=== PATIENT | female | born 1965 | race Caucasian/White ===

== ENCOUNTER 2020-10-05 19:23 | Emergency (ER) | payer OTHER ==
[~2020-10-05] VITALS: Ht 160 cm; Wt 104.3 kg
[~2020-10-05 19:23] MED LIST: BENTYL20 MG PO; CYCL10 PO; ESTR2 PO; ESTRADIOL1 MG PO; HYDCHL12.5 PO; LEVSOD25 PO; LOSA25 PO; LOSARTAN POTAS100 MG PO; NP THYROID90 MG PO; Norco 5-325 Ta1 EACH PO; SERT100 PO; SERT25 PO
== END 2020-10-05 23:00 | disposition left against medical advice (07) ==
LOC: ER 19:23
DX: Z53.21 Procedure and treatment not carried out due to patient leaving prior to being seen by health care provider (principal)
CPT/HCPCS: 99282

== ENCOUNTER 2023-12-11 11:46 | Emergency (ER) | payer OTHER ==
[~2023-12-11] VITALS: Ht 162.6 cm; Wt 112.0 kg
[2023-12-11 12:39] LABS: BASOPHILS ABSOLUTE AUTO 0.11 K/mm3 (0.00-0.23); BASOPHILS PERCENT AUTO 1 % (0-2); EOSINOPHILS PERCENT AUTO 1 % (0-6); Hematocrit 41.9 % (33.0-51.0); Hemoglobin 13.9 g/dL (11.5-16.0); IMMATURE GRAN ABSOLUTE AUTO 0.03 K/mm3 (0.00-0.10); IMMATURE GRAN PERCENT AUTO 0 % (0-1); LYMPHOCYTES ABSOLUTE AUTO 2.49 K/mm3 (0.84-5.20); LYMPHOCYTES PERCENT AUTO 25 % (21-46); MONOCYTES ABSOLUTE AUTO 0.65 K/mm3 (0.16-1.47); MONOCYTES PERCENT AUTO 7 % (4-13); Mean Corpuscular HGB 29.3 pg (26.0-34.0); Mean Corpuscular HGB Conc 33.2 g/dL (31.5-36.5); Mean Corpuscular Volume 88 fL (80-100); NEUTROPHILS ABSOLUTE AUTO 6.42 K/mm3 (1.96-9.15); NEUTROPHILS PERCENT AUTO 66 % (41-73); Platelet Count 374 K/mm3 (150-400); RDW Coefficient Variation 14.6 % (11.7-14.2); RDW Standard Deviation 47.3 fL (35.1-46.3); Red Blood Cell Count 4.74 M/mm3 (3.80-5.20)
[2023-12-11 13:27] LABS: Albumin, Blood 3.4 g/dL (3.4-5.0); Albumin/Globulin Ratio 0.9 (0.8-1.8); Bilirubin, Total 0.5 mg/dL (0.1-1.0); Bun/Creatinine Ratio 23.4 (12.0-20.0); Calcium, Blood 9.1 mg/dL (8.5-10.1); Creatinine, Blood 0.68 mg/dL (0.40-1.00); Globulin, Blood 3.9 g/dL (2.2-4.0); Potassium, Blood 3.9 mmol/L (3.5-5.5); Total Protein, Blood 7.3 g/dL (6.4-8.2)
[2023-12-11] MEDS ORDERED: HydrALAZINE HCl 25 MG Tab PO ONE (15:25)
[2023-12-11 17:00] VITALS: BP 161/91
[2023-12-11] MEDS ORDERED: LOSARTAN POTAS100 MG PO ×2 (17:09→17:10)
== END 2023-12-11 17:20 | disposition home or self-care (01) ==
LOC: ER 11:46
PROVIDERS: Physician Assistant
DX: R07.89 Other chest pain (principal); I10 Essential (primary) hypertension; R42 Dizziness and giddiness; E07.9 Disorder of thyroid, unspecified; F17.200 Nicotine dependence, unspecified, uncomplicated; Z79.890 Hormone replacement therapy; Z79.899 Other long term (current) drug therapy
CPT/HCPCS: 80053; 84484; 85025; 93005; 93010; 99283-25; A9270